=== PATIENT | female | born 1980 | race Caucasian/White ===

== ENCOUNTER 2018-01-04 10:42 | Emergency (ER) | payer OTHER ==
[~2018-01-04] VITALS: Ht 154.9 cm; Wt 92.1 kg
[~2018-01-04 10:42] MED LIST: Coumadin,Jantoven PO; FLEXERIL10 MG PO; LEVAQUIN500 MG PO; Lovenox SC; MARTINIC1 EACH PO; MULTIVITAMIN1 EAC2 PO; Martinic PO; NOHOMEMEDS; PRILOSEC40 MG PO; TYLENOL WITH C1 EACH PO; Vicodin,Norco 5/325 PO; celeBREX PO
[2018-01-04] MEDS ORDERED: PERCOCET 5/31 TABLET PO (11:35)
[2018-01-04 12:27] VITALS: BP 149/90
== END 2018-01-04 12:28 | disposition home or self-care (01) ==
LOC: EME 10:42
DX: K42.9 Umbilical hernia without obstruction or gangrene (principal); K21.9 Gastro-esophageal reflux disease without esophagitis; F32.9 Major depressive disorder, single episode, unspecified; Z86.711 Personal history of pulmonary embolism; Z90.49 Acquired absence of other specified parts of digestive tract; Z98.84 Bariatric surgery status
CPT/HCPCS: 99281; 99284